=== PATIENT | female | born 1990 | race Caucasian/White ===

== ENCOUNTER 2018-03-19 08:47 | Emergency (ER) | payer OTHER ==
[2018-03-19 08:54] VITALS: BP 119/81; PULSE 81; RESP 18; TEMP 98.7; O2SAT 100
[2018-03-19] MEDS ORDERED: guaiFENesin 100 mg/5 ml Syrup UD PO STA (09:28)
--- NOTE | 2018-03-19 09:29 | C.PDOC ---
History Of Present Illness 27 y/o female presents to the ER complaining of mild non-productive cough, nasal congestion, and malaise which has been present for the past 1 day. Patient states that she had bronchitis 2 weeks ago and she took Azithromycin with improvement. Patient reports that she did not take any medications today. She has 2 children at home, 1 child is sick with viral syndrome symptoms. Denies having fever, chills, CP, SOB, nausea, and vomiting. Time Seen by Provider: 03/19/18 09:18 Chief Complaint (Nursing): Cough, Cold, Congestion History Per: Patient History/Exam Limitations: no limitations Onset/Duration Of Symptoms: Days Current Symptoms Are (Timing): Still Present Severity: Moderate Past Medical History Reviewed: Historical Data, Nursing Documentation, Vital Signs Vital Signs: Last Vital Signs Temp 98.7 F 03/19/18 08:49 Pulse 81 03/19/18 08:49 Resp 18 03/19/18 08:49 BP 119/81 03/19/18 08:49 Pulse Ox 100 03/19/18 08:49 - Medical History PMH: Bronchitis Surgical History: Appendectomy Family History: States: No Known Family Hx - Social History Hx Tobacco Use: No Hx Alcohol Use: No Hx Substance Use: No - Immunization History Hx Tetanus Toxoid Vaccination: No Hx Influenza Vaccination: No Hx Pneumococcal Vaccination: No Review Of Systems Except As Marked, All Systems Reviewed And Found Negative. Constitutional: Positive for: Malaise. Negative for: Fever, Chills Cardiovascular: Negative for: Chest Pain Respiratory: Positive for: Cough. Negative for: Shortness of Breath Gastrointestinal: Negative for: Nausea, Vomiting Physical Exam - Physical Exam Appears: Non-toxic, No Acute Distress Skin: Normal Color, Warm, Dry Head: Atraumatic, Normacephalic Eye(s): bilateral: Normal Inspection Ear(s): Bilateral: Normal Nose: Normal Oral Mucosa: Moist Throat: Normal, No Erythema, No Exudate Neck: Supple Chest: Symmetrical Cardiovascular: Rhythm Regular Respiratory: Normal Breath Sounds, No Rales, No Rhonchi, No Wheezing Neurological/Psych: Oriented x3, Normal Speech ED Course And Treatment O2 Sat by Pulse Oximetry: 100 (RA) Pulse Ox Interpretation: Normal Progress Note: Patient treated with Robitussin PO and Motrin PO. Medical Decision Making Medical Decision Making: mild viral syndrome for 1 day clear lungs otc remedies educated. Disposition Doctor Will See Patient In The: Office Counseled Patient/Family Regarding: Studies Performed, Diagnosis - Disposition Referrals: [facility] [facility] [Outside] [facility] [Outside] [facility] [Outside] [place] [Outside] Disposition: HOME/ ROUTINE Disposition Time: 09:29 Condition: GOOD Additional Instructions: Robitussin/Dayquil/Nyquil in ADEQUATE frequency symptoms will last 7-10 days outpatient follow-up as needed Instructions: Viral Syndrome (DC) Forms: [facility] (Czech) - Clinical Impression Clinical Impression: Viral disease - Scribe Statement The provider has reviewed the documentation as recorded by the Arielleibe Jose Tuttle Provider Attestation: All medical record entries made by the Scribe were at my direction and personally dictated by me. I have reviewed the chart and agree that the record accurately reflects my personal performance of the history, physical exam, medical decision making, and the department course for this patient. I have also personally directed, reviewed, and agree with the discharge instructions and disposition.
[2018-03-19] MEDS ORDERED: guaiFENesin 100 mg/5 ml Syrup UD ONE (09:38)
== END 2018-03-19 09:40 | disposition home or self-care (01) ==
LOC: C.ER 08:47
DX: B34.9 Viral infection, unspecified (principal)

== ENCOUNTER 2018-07-30 07:21 | Outpatient (CLI) | payer OTHER | END 2018-07-30 07:22 | disposition home or self-care (01) | LOC: C.LAB 07:21 | DX: Z00.00 Encounter for general adult medical examination without abnormal findings (principal) ==